=== PATIENT | female | born 1965 | race African-American/Black ===

== ENCOUNTER 2023-03-20 10:30 | Outpatient (CLI) | payer OTHER | END 2023-03-20 10:31 | disposition home or self-care (01) | LOC: CSHRAD 10:30 | PROVIDERS: ATTEND Family Medicine | DX: M25.561 Pain in right knee (principal); M25.562 Pain in left knee; G62.9 Polyneuropathy, unspecified ==

== ENCOUNTER 2023-04-16 14:50 | Outpatient (CLI) | payer OTHER | END 2023-04-16 14:51 | disposition home or self-care (01) | LOC: CSHMAMMO 14:50 | PROVIDERS: ATTEND Family Medicine | DX: Z12.31 Encounter for screening mammogram for malignant neoplasm of breast (principal) | CPT/HCPCS: 77063; 77067 ==

== ENCOUNTER 2024-08-25 08:44 | Outpatient (CLI) | payer OTHER | END 2024-08-25 08:45 | disposition home or self-care (01) | LOC: CSHMAMMO 08:44 | PROVIDERS: ATTEND Family Medicine | DX: Z12.31 Encounter for screening mammogram for malignant neoplasm of breast (principal) | CPT/HCPCS: 77063; 77067 ==

== ENCOUNTER 2025-09-09 12:28 | Outpatient (CLI) | payer OTHER | END 2025-09-09 12:29 | disposition home or self-care (01) | LOC: CSHMAMMO 12:28 | PROVIDERS: ATTEND Family Medicine | DX: Z12.31 Encounter for screening mammogram for malignant neoplasm of breast (principal) | CPT/HCPCS: 77063; 77067 ==